=== PATIENT | female | born 1965 | race Caucasian/White ===

== ENCOUNTER → 2018-05-30 | Outpatient (CLI) | payer MEDICARE, MEDICAID ==
[~2018-05-30] MED LIST: ASPI-691 PO; BONE TP; CALC1CAP8 PO; CELE200C PO; COMPLETE TISSUE TP; DIPH1TAB6 PO; DOCU-131 PO; HYDR-3240 PO; LEVO125T5 PO; ONDA4TAB7 PO; RIVA10TA PO; SERT100T PO; SIME180C4 PO
[2018-05-30 15:15] LABS: BASOPHILS # (AUTO) 0.04 x10^3/uL (0-0.1); BASOPHILS % (AUTO) 1 % (0-1); EOSINOPHILS # (AUTO) 0.23 x10^3/uL (0-0.4); EOSINOPHILS % (AUTO) 4 % (1-7); LYMPHOCYTES # (AUTO) 3.14 x10^3/uL (1-3.4); LYMPHOCYTES % (AUTO) 49 % (22-44); MD NO; MEAN CORPUSCULAR HEMOGLOBIN 30.2 pg (27.0-34.8); MEAN CORPUSCULAR HGB CONC 33.7 g/dL (32.4-35.8); MEAN CORPUSCULAR VOLUME 89.4 fL (80-100); MEAN PLATELET VOLUME 7.3 fL (7.4-10.4); MONOCYTES # (AUTO) 0.48 x10^3/uL (0.2-0.8); MONOCYTES % (AUTO) 7 % (2-9); NEUTROPHILS # (AUTO) 2.54 x10^3/uL (1.8-6.8); NEUTROPHILS % (AUTO) 40 % (42-75); PLATELET COUNT 346 x10^3/uL (130-400); RED BLOOD COUNT 4.59 x10^6/uL (3.82-5.3); RED CELL DISTRIBUTION WIDTH 12.8 % (9.6-15.2)
[2018-05-30 15:16] LABS: MICROSCOPIC NOT IND
[2018-05-30 15:20] LABS: CULTURE INDICATED? NO
[2018-05-30 15:25] LABS: ANION GAP 5 mmol/L (5-15); CALCIUM 8.6 mg/dL (8.5-10.1); CHLORIDE 106 mmol/L (98-107); CREATININE 0.83 mg/dL (0.55-1.02)
[2018-05-30 15:27] LABS: INTERNATIONAL NORMALIZED RATIO 0.96 (0.93-1.1)
== END | disposition home or self-care (01) ==
LOC: STAR 13:44
PROVIDERS: ATTEND Orthopaedic Surgery
DX: Z01.818 Encounter for other preprocedural examination (principal); Z96.652 Presence of left artificial knee joint; Z79.899 Other long term (current) drug therapy; M25.552 Pain in left hip; M25.562 Pain in left knee; M17.12 Unilateral primary osteoarthritis, left knee; M25.561 Pain in right knee; M25.551 Pain in right hip; I51.9 Heart disease, unspecified; K21.9 Gastro-esophageal reflux disease without esophagitis; M75.41 Impingement syndrome of right shoulder
CPT/HCPCS: 36415; 80048; 81003; 83036; 85025; 85610; 85730; 87081; 87806; G0475

== ENCOUNTER 2018-06-06 10:00 | Inpatient (IN) | payer MEDICARE, MEDICAID ==
[2018-05-30 14:17] VITALS: BP 114/77
[~2018-06-06] VITALS: Ht 165.1 cm; Wt 105.8 kg
[~2018-06-06 10:00] MED LIST changes: -CELE200C PO; -DOCU-131 PO; +EPINEPHRINE 1 MG/ML, 1ML ONE; +KETOROLAC 60 MG/2 ML ONE; -ONDA4TAB7 PO; -RIVA10TA PO; +ROPIvacaine/PF 0.2%, 20 ML ONE; +TRANEXAMIC ACID 100 MG/ML, 10ML ONE
[2018-06-06] MEDS ORDERED: LACTATED RINGERS 1,000 ML IV SCH (11:26)
[2018-06-06] MEDS ORDERED: ACETAMINOPHEN 500 MG TABLET PO ONE (11:30)
[2018-06-06] MEDS ORDERED: GABAPENTIN 300 MG CAPSULE PO ONE (11:30)
[2018-06-06] MEDS ORDERED: ACETAMINOPHEN 500 MG TABLET ONE (11:51)
[2018-06-06] MEDS ORDERED: GABAPENTIN 300 MG CAPSULE ONE (11:51)
[2018-06-06] MEDS ORDERED: VANCOMYCIN PER PHARMACY MC PRN (12:00)
[2018-06-06] MEDS ORDERED: VANCOMYCIN 1,800 MG in SODIUM CHLORIDE 0.9% 250 ML IV ONE (12:30)
[2018-06-06] MEDS ORDERED: MIDAZOLAM 1 MG/ML, 2ML ONE (12:50)
[2018-06-06] MEDS ORDERED: FENTANYL PF 250 MCG/5ML ONE (12:50)
[2018-06-06] MEDS: D5%-0.45NACL+KCL 20MEQ 1,000 ML IV SCH (13:39)
[2018-06-06] MEDS ORDERED: KETAMINE 10 MG/ML, 20ML ONE (13:44)
[2018-06-06] MEDS ORDERED: PROMETHAZINE 25 MG/ML, 1ML IM PRN (14:00)
[2018-06-06] MEDS ORDERED: ONDANSETRON 2MG/ML, 2ML IV PRN ×2 (14:00→15:00)
[2018-06-06] MEDS ORDERED: SENNA/DOCUSATE TABLET PO PRN (14:00)
[2018-06-06] MEDS ORDERED: TRANEXAMIC ACID 1,000 MG in SODIUM CHLORIDE 0.9% 100 ML IVPB ONE (14:00)
[2018-06-06] MEDS ORDERED: DIPHENHYDRAMINE 25 MG CAPSULE PO PRN (14:00)
[2018-06-06] MEDS ORDERED: ACETAMINOPHEN 650 MG/20.3 ML UDC PO PRN (14:00)
[2018-06-06] MEDS ORDERED: ALUMINUM/MAG/SIMETHICONE 30 ML UDC PO PRN (14:00)
[2018-06-06] MEDS ORDERED: HYDROmorphone 2 MG/ML, 1ML IV PRN ×2 (14:00→15:00)
[2018-06-06] MEDS ORDERED: ONDANSETRON 4 MG TABLET PO PRN (14:00)
[2018-06-06] MEDS ORDERED: MAGNESIUM HYDROXIDE 8%, 30ML UDC PO PRN (14:00)
[2018-06-06] MEDS ORDERED: HYDROmorphone 2 MG/ML, 1ML ONE (14:27)
[2018-06-06] MEDS ORDERED: SUCCINYLCHOLINE 20 MG/ML, 10ML ONE (14:37)
[2018-06-06] MEDS ORDERED: BUPIVACAINE/PF 0.25% ONE (14:37)
[2018-06-06] MEDS ORDERED: PROPOFOL 10 MG/ML, 20ML ONE (14:37)
[2018-06-06] MEDS ORDERED: DEXAMETHASONE 4 MG/ML, 1ML ONE (14:37)
[2018-06-06] MEDS ORDERED: CEFAZOLIN 1,000 MG ONE (14:37)
[2018-06-06] MEDS ORDERED: ONDANSETRON 2MG/ML, 2ML ONE (14:37)
[2018-06-06] MEDS ORDERED: ALBUTEROL/IPRATROPIUM 2.5MG/0.5MG, 3 ML NPPB PRN (15:00)
[2018-06-06] MEDS ORDERED: MEPERIDINE/PF 25MG/0.5ML IVPush PRN (15:00)
[2018-06-06] MEDS ORDERED: SCOPOLAMINE PATCH, 1.5MG PATCH.TD72 TD PRN (15:00)
[2018-06-06] MEDS ORDERED: PROMETHAZINE 25 MG/ML, 1ML IV PRN (15:00)
[2018-06-06] MEDS ORDERED: LABETALOL 5MG/ML, 20ML IV PRN (15:00)
[2018-06-06] MEDS ORDERED: MIDAZOLAM 1 MG/ML, 2ML IV PRN (15:00)
[2018-06-06] MEDS ORDERED: OXYcodone 5 MG/5 ML ORAL.SOL UDC PO PRN (15:00)
[2018-06-06] MEDS ORDERED: FENTANYL PF 100 MCG/2ML IV PRN (15:00)
[2018-06-06] MEDS ORDERED: EPHEDRINE 50 MG/ML, 1ML IM PRN (15:00)
[2018-06-06] MEDS ORDERED: ROPIvacaine/PF 0.2%, 100ML 550 ML (check volume) INJ ONE (15:00)
[2018-06-06] MEDS ORDERED: OxyconTIN ER 20 MG TAB.ER PO SCH (15:00)
[2018-06-06] MEDS ORDERED: LIDOCAINE GEL 2%, 5ML ONE (15:11)
[2018-06-06] MEDS ORDERED: OXYcodone 5 MG/5 ML ORAL.SOL UDC ONE (16:40)
[2018-06-06] MEDS ORDERED: PROMETHAZINE 25 MG/ML, 1ML ONE (16:51)
[2018-06-06] MEDS ORDERED: DIPHENOXYLATE/ATROPINE TABLET PO PRN (19:30)
[2018-06-06 20:22] VITALS: BP 116/57
[2018-06-06] MEDS: DOCUSATE 100 MG CAPSULE PO SCH (20:23)
[2018-06-06] MEDS: CEFAZOLIN PMX 1GM/50ML 50 ML IVPB SCH (22:00)
[2018-06-07] MEDS: D5%-0.45NACL+KCL 20MEQ 1,000 ML IV SCH ×4 (00:02→23:40)
[2018-06-07 00:49] VITALS: BP 115/75
[2018-06-07] MEDS: OXYcodone IR 5MG TABLET PO PRN ×5 (01:54→22:26)
[2018-06-07 04:24] VITALS: BP 91/58
[2018-06-07] MEDS ORDERED: DEXAMETHASONE 4 MG/ML, 1ML IVPush SCH (06:00)
[2018-06-07] MEDS: LEVOTHYROXINE 125 MCG TABLET PO SCH (06:02)
[2018-06-07] MEDS: CEFAZOLIN PMX 1GM/50ML 50 ML IVPB SCH (06:02)
[2018-06-07 07:43] VITALS: BP 93/61
[2018-06-07] MEDS: TAMSULOSIN 0.4 MG CAP.ER.24H PO SCH (09:00)
[2018-06-07] MEDS: DOCUSATE 100 MG CAPSULE PO SCH ×2 (09:00→20:42)
[2018-06-07] MEDS: SERTRALINE 100MG TABLET PO SCH (11:06)
[2018-06-07] MEDS: RIVAROXABAN 10 MG TABLET PO SCH (11:06)
[2018-06-07 13:17] VITALS: BP 93/55
[2018-06-07] MEDS: KETOROLAC 30 MG/1 ML IV SCH ×2 (14:25→20:42)
[2018-06-07] MEDS ORDERED: [UNRECOGNIZED DRUG - REMARK] MC SCH (16:30)
[2018-06-07 19:49] VITALS: BP 91/57
[2018-06-07] MEDS ORDERED: CALCIUM CARBONATE 500 MG TABLET PO SCH (21:00)
[2018-06-08 02:39] VITALS: BP 96/61
[2018-06-08] MEDS: LEVOTHYROXINE 125 MCG TABLET PO SCH (06:07)
[2018-06-08] MEDS: OXYcodone IR 5MG TABLET PO PRN ×2 (06:07→10:02)
[2018-06-08] MEDS: KETOROLAC 30 MG/1 ML IV SCH (06:07)
[2018-06-08 07:10] VITALS: BP 105/69
[2018-06-08] MEDS: TAMSULOSIN 0.4 MG CAP.ER.24H PO SCH (08:59)
[2018-06-08] MEDS: DOCUSATE 100 MG CAPSULE PO SCH (08:59)
[2018-06-08] MEDS: SERTRALINE 100MG TABLET PO SCH (08:59)
[2018-06-08] MEDS: RIVAROXABAN 10 MG TABLET PO SCH (08:59)
[2018-06-08] MEDS ORDERED: RIVA10TA PO (09:19)
[2018-06-08] MEDS ORDERED: DOCU-131 PO (09:19)
[2018-06-08] MEDS ORDERED: ONDA4TAB7 PO (09:20)
[2018-06-08] MEDS ORDERED: CELE200C PO (09:20)
== END 2018-06-08 10:30 | disposition home or self-care (01) | DRG 467 ==
LOC: ORIP 10:52 → 4NOR 18:25 → DCLOUNGE 06-08 10:18
PROVIDERS: ADMIT Orthopaedic Surgery; ATTEND Orthopaedic Surgery
PROC: 0SRD0J9 Replacement of Left Knee Joint with Synthetic Substitute, Cemented, Open Approach (ICD-10-PCS; 2018-06-06)
PROC: 0SPD0JZ Removal of Synthetic Substitute from Left Knee Joint, Open Approach (ICD-10-PCS; principal; 2018-06-06 13:00)
DX: T84.033A Mechanical loosening of internal left knee prosthetic joint, initial encounter (principal); E44.0 Moderate protein-calorie malnutrition; Y79.2 Prosthetic and other implants, materials and accessory orthopedic devices associated with adverse incidents; Y92.89 Other specified places as the place of occurrence of the external cause; Z88.6 Allergy status to analgesic agent; Z88.8 Allergy status to other drugs, medicaments and biological substances; Z91.048 Other nonmedicinal substance allergy status; M21.162 Varus deformity, not elsewhere classified, left knee
CPT/HCPCS: 36415; 85014; 85018; 87070; 87075; 87102; 87116; 87205; 87206; 89051; C1713; J0171; J0690; J1100; J1170; J1885; J2250; J2405; J2550; J2704; J2795; J3010; J3370; J3490; C1776; J0330; J3480; J7050; J7120